=== PATIENT | female | born 1960 | race Caucasian/White ===

== ENCOUNTER → 2020-03-18 | Outpatient (CLI) | payer MEDICARE ==
[~2020-03-18] MED LIST: REGADENOSON 0.4 MG/5 ML SYRINGE ONE
== END | disposition home or self-care (01) ==
LOC: CFH 07:49
PROVIDERS: ATTEND Internal Medicine Cardiovascular Disease
DX: I37.1 Nonrheumatic pulmonary valve insufficiency (principal); I25.9 Chronic ischemic heart disease, unspecified; I25.10 Atherosclerotic heart disease of native coronary artery without angina pectoris; I10 Essential (primary) hypertension
CPT/HCPCS: 78452; 93017; 93306; 93356; A9502; J2785

== ENCOUNTER 2020-03-31 09:03 | Day surgery (SDC) | payer MEDICARE ==
[~2020-03-31] VITALS: Ht 154.9 cm; Wt 86.4 kg
[2020-03-31] MEDS ORDERED: SODIUM CHLORIDE 0.9% 1,000 ML IV SCH (09:32)
[2020-03-31 09:36] VITALS: BP 122/72
[2020-03-31] MEDS ORDERED: ASPIRIN 325 MG TABLET EC PO ONE (10:00)
[2020-03-31] MEDS ORDERED: EVOL140P3 SQ (10:06)
[2020-03-31] MEDS ORDERED: EZET10TA70 PO (10:06)
[2020-03-31] MEDS ORDERED: [UNRECOGNIZED DRUG - OTHER] INH (10:06)
[2020-03-31] MEDS ORDERED: Vitamin D PO (10:06)
[2020-03-31] MEDS ORDERED: OMEP40CA42 PO (10:06)
[2020-03-31] MEDS ORDERED: AMLO2.5T5 PO (10:06)
[2020-03-31] MEDS ORDERED: METO-93 PO (10:06)
[2020-03-31] MEDS ORDERED: OMEG1CAP39 PO (10:06)
[2020-03-31] MEDS ORDERED: ASPI81TA45 PO (10:06)
[2020-03-31] MEDS ORDERED: MAGN400T36 PO (10:06)
[2020-03-31] MEDS ORDERED: NITR0.4T28 SL (10:06)
[2020-03-31] MEDS ORDERED: GEMF600T PO (10:06)
[2020-03-31] MEDS ORDERED: ESCI20TA10 PO (10:06)
[2020-03-31] MEDS ORDERED: DICLOFENAC PO (10:06)
[2020-03-31] MEDS ORDERED: UBID100C41 PO (10:06)
[2020-03-31] MEDS ORDERED: MULT-709 PO (10:24)
[2020-03-31] MEDS ORDERED: ASPIRIN 325 MG TABLET EC ONE (10:29)
[2020-03-31] MEDS ORDERED: PLEASE ENTER HEIGHT AND WEIGHT MC SCH (10:30)
[2020-03-31 10:39] LABS: ALANINE AMINOTRANSFERASE 25 U/L (12-78); ANION GAP 5 mmol/L (5-15); CALCIUM 9.3 mg/dL (8.5-10.1); CHLORIDE 107 mmol/L (98-107); CREATININE 1.11 mg/dL (0.55-1.02)
[2020-03-31 10:42] LABS: ALKALINE PHOSPHATASE 85 U/L (45-117); BILIRUBIN,TOTAL 0.7 mg/dL (0.2-1.0); TOTAL PROTEIN 7.5 g/dL (6.4-8.2)
[2020-03-31 10:44] LABS: BASOPHILS # (AUTO) 0.01 x10^3/uL (0-0.1); BASOPHILS % (AUTO) 0 % (0-1); EOSINOPHILS # (AUTO) 0.22 x10^3/uL (0-0.4); EOSINOPHILS % (AUTO) 6 % (1-7); LYMPHOCYTES # (AUTO) 1.49 x10^3/uL (1-3.4); LYMPHOCYTES % (AUTO) 38 % (22-44); MD NO; MEAN CORPUSCULAR HEMOGLOBIN 29.1 pg (27.0-34.8); MEAN CORPUSCULAR HGB CONC 32.6 g/dL (32.4-35.8); MEAN CORPUSCULAR VOLUME 89.3 fL (80-100); MONOCYTES % (AUTO) 13 % (2-9); NEUTROPHILS % (AUTO) 43 % (42-75); PLATELET COUNT 322 x10^3/uL (130-400); RED BLOOD COUNT 4.73 x10^6/uL (3.82-5.3)
[2020-03-31] MEDS ORDERED: MIDAZOLAM 1 MG/ML, 2ML ONE ×2 (13:24→13:53)
[2020-03-31] MEDS ORDERED: LIDOCAINE-MPF 1%, 5ML ONE (13:25)
[2020-03-31] MEDS ORDERED: HEPARIN 1,000 UNITS/ML, 10ML ONE (13:25)
[2020-03-31] MEDS ORDERED: FENTANYL PF 100 MCG/2ML ONE (13:25)
[2020-03-31] MEDS ORDERED: VERAPAMIL 2.5 MG/ML, 2ML ONE (13:26)
[2020-03-31] MEDS ORDERED: BIVALIRUDIN 250 MG ONE (13:47)
== END 2020-03-31 16:23 | disposition home or self-care (01) ==
LOC: CACL 09:03
PROVIDERS: ATTEND Internal Medicine Cardiovascular Disease
DX: I25.110 Atherosclerotic heart disease of native coronary artery with unstable angina pectoris (principal); I25.83 Coronary atherosclerosis due to lipid rich plaque; I10 Essential (primary) hypertension; I25.2 Old myocardial infarction; E78.2 Mixed hyperlipidemia; J44.9 Chronic obstructive pulmonary disease, unspecified; G47.33 Obstructive sleep apnea (adult) (pediatric); F32.9 Major depressive disorder, single episode, unspecified; M79.7 Fibromyalgia; E66.9 Obesity, unspecified; F17.210 Nicotine dependence, cigarettes, uncomplicated; Z68.36 Body mass index [BMI] 36.0-36.9, adult; Z79.82 Long term (current) use of aspirin; Z79.899 Other long term (current) drug therapy; Z88.2 Allergy status to sulfonamides; Z95.5 Presence of coronary angioplasty implant and graft; Z82.49 Family history of ischemic heart disease and other diseases of the circulatory system
CPT/HCPCS: 36415; 71046; 80053; 85025; 93458; 99156; C1769; C1894; J0583; J1644; J2250; J3010; Q9967